=== PATIENT | male | born 1960 | race Caucasian/White ===

== ENCOUNTER → 2018-04-02 | Emergency (ER) | payer OTHER ==
[~2018-04-02] VITALS: Ht 175.3 cm; Wt 77.1 kg
== END | disposition home or self-care (01) ==
LOC: ER 17:22
DX: S53.195A Other dislocation of left ulnohumeral joint, initial encounter (principal); X58.XXXA Exposure to other specified factors, initial encounter; Y93.89 Activity, other specified; Y92.832 Beach as the place of occurrence of the external cause; Y99.8 Other external cause status